=== PATIENT | male | born 1995 | race African-American/Black ===

== ENCOUNTER 2024-11-12 09:03 | Emergency (ER) | payer SELFPAY ==
[~2024-11-12] VITALS: Ht 185.4 cm; Wt 87.7 kg
[2024-11-12] MEDS: NS (Normal Saline) 0.9% 1,000 ML IV ONE (09:37)
[2024-11-12 09:52] LABS: PLATELET COUNT, AUTOMATED 199 10^3/uL (150-450)
[2024-11-12 10:18] LABS: CALCIUM LEVEL 9.1 MG/DL (8.5-10.1); CARBON DIOXIDE LEVEL 30.0 MMOL/L (20-31); CHLORIDE LEVEL 106.0 MMOL/L (98-107); CREATININE FOR GFR 1.22 MG/DL (0.70-1.30); GLOMERULAR FILTRATION RATE 81.8 (>60); POTASSIUM SERUM 4.2 MMOL/L (3.5-5.1); SODIUM LEVEL 143.0 MMOL/L (136-145)
[2024-11-12 11:49] VITALS: BP 116/61; TEMP 97.1; O2SAT 100
[2024-11-12] MEDS ORDERED: HOLTER MONITOR XX (11:50)
[2024-11-12] MEDS ORDERED: EEG XX (11:50)
== END 2024-11-12 11:57 | disposition home or self-care (01) ==
LOC: EDBD 09:03 → M ED 09:03
DX: R55 Syncope and collapse (principal); R00.1 Bradycardia, unspecified; I45.4 Nonspecific intraventricular block; Z91.040 Latex allergy status; Z91.048 Other nonmedicinal substance allergy status; Z79.899 Other long term (current) drug therapy

== ENCOUNTER → 2024-11-13 | Outpatient (CLI) | payer MEDICAID, SELFPAY ==
[~2024-11-13] MED LIST: EEG XX; HOLTER MONITOR XX
== END ==
LOC: M EKG 13:15
PROVIDERS: ATTEND Emergency Medicine
DX: R00.2 Palpitations (principal); Z53.9 Procedure and treatment not carried out, unspecified reason

== ENCOUNTER 2024-11-26 05:39 | Emergency (ER) | payer MEDICAID ==
[~2024-11-26] VITALS: Ht 185.4 cm; Wt 89.9 kg
[2024-11-26] MEDS: KETOROLAC 60 MG/2 ML VIAL IM ONE (08:19)
[2024-11-26 09:10] VITALS: BP 99/55; TEMP 96.5; O2SAT 100
== END 2024-11-26 09:22 | disposition home or self-care (01) ==
LOC: M ED 05:39
DX: S63.502A Unspecified sprain of left wrist, initial encounter (principal); M25.532 Pain in left wrist; Y92.009 Unspecified place in unspecified non-institutional (private) residence as the place of occurrence of the external cause; Y93.89 Activity, other specified; Y99.9 Unspecified external cause status; Z91.040 Latex allergy status; Z91.048 Other nonmedicinal substance allergy status; Z79.899 Other long term (current) drug therapy
CPT/HCPCS: 73110; 96372; 99284; J1885

== ENCOUNTER 2024-12-20 05:45 | Emergency (ER) | payer MEDICAID, OTHER ==
[~2024-12-20] VITALS: Ht 185.4 cm; Wt 89.0 kg
[2024-12-20] MEDS: NS (Normal Saline) 0.9% 1,000 ML IV ONE (06:26)
[2024-12-20 06:33] LABS: BASO # 0.0 10^3/uL (0.0-0.2); BASO % 0.5 % (0.0-1.0); EOS # 0.2 10^3/uL (0.0-0.5); EOS % 3.5 % (0.0-3.0); LYMPH # 2.0 10^3/uL (1.5-5.0); LYMPH % 36.5 % (24.0-44.0); MONO # 0.4 10^3/uL (0.0-0.8); MONO % 7.1 % (2.0-8.0); NEUTROPHILS # 2.9 10^3/uL (1.5-8.5); NEUTROPHILS % 52.2 % (36.0-66.0); PLATELET COUNT, AUTOMATED 195 10^3/uL (150-450)
[2024-12-20] MEDS ORDERED: ISOVUE-370 76% 100 ML VIAL As Ordered ONE (06:33)
[2024-12-20] MEDS: KETOROLAC 30 MG/ML 1 ML VIAL IV ONE (06:51)
[2024-12-20 06:58] LABS: CK-MB VALUE MASS 2.9 NG/ML (<3.6)
[2024-12-20 07:00] LABS: ALT/SGPT 23 U/L (7.0-40); AST/SGOT 21 U/L (<34)
[2024-12-20] MEDS ORDERED: ACETAMINOPHEN 500 MG TAB PO ONE (07:25)
[2024-12-20 07:27] LABS: HIV 1&2 SCREEN NEGATIVE (NEGATIVE)
[2024-12-20 07:28] LABS: CPK CREATINE PHOSPHOKINASE 284 U/L (46-171); MB/CK RELATIVE INDEX 1.02 (< OR =4)
[2024-12-20] MEDS: ONDANSETRON 4MG/2ML VIAL IV ONE (07:47)
[2024-12-20] MEDS: MORPHINE 4 MG/ML 1 ML VIAL IV ONE (07:47)
[2024-12-20 08:28] LABS: KETONE, URINE AUTO RFX NEGATIVE (NEGATIVE); LEUKOCYTE ESTERASE UR AUTO RFX NEGATIVE (NEGATIVE); NITRITE, URINE AUTO RFX NEGATIVE (NEGATIVE); RBC, URINE AUTO RFX 0 /HPF (0-3); SQUAM EPITHELIAL CELL UR AURFX 0 /HPF (0-6); WBC, URINE AUTO RFX 0 /HPF (0-3)
[2024-12-20 10:40] LABS: GC DNA AMPLIFICATION NEGATIVE (NEGATIVE); Trichomonas vaginalis (AMP) NOT DETECTED (NEGATIVE)
[2024-12-20 11:00] VITALS: BP 115/59; O2SAT 100
[2024-12-20] MEDS ORDERED: ONDA-282 PO (11:01)
[2024-12-20 11:03] VITALS: TEMP 97.6
== END 2024-12-20 11:18 | disposition home or self-care (01) ==
LOC: M ED 05:45
DX: R10.9 Unspecified abdominal pain (principal); R11.2 Nausea with vomiting, unspecified; K42.9 Umbilical hernia without obstruction or gangrene; R79.89 Other specified abnormal findings of blood chemistry; R00.1 Bradycardia, unspecified; I49.49 Other premature depolarization; Z91.040 Latex allergy status; Z91.09 Other allergy status, other than to drugs and biological substances; Z79.899 Other long term (current) drug therapy
CPT/HCPCS: 71046; 74177; 76705; 80047; 80076; 81001; 82550; 82553; 83690; 84484; 85025; 86780; 87389; 87661; 87810; 87850; 93005; 93041; 96361; 96374; 96375; 99285; J1885; J2405; Q9967

== ENCOUNTER 2024-12-24 14:19 | Emergency (ER) | payer OTHER ==
[~2024-12-24] VITALS: Ht 185.4 cm; Wt 89.5 kg
[~2024-12-24 14:19] MED LIST changes: +ONDA-282 PO
[2024-12-24 15:01] LABS: BASO # 0.0 10^3/uL (0.0-0.2); BASO % 0.6 % (0.0-1.0); EOS # 0.2 10^3/uL (0.0-0.5); EOS % 3.5 % (0.0-3.0); LYMPH # 1.6 10^3/uL (1.5-5.0); LYMPH % 26.1 % (24.0-44.0); MONO # 0.4 10^3/uL (0.0-0.8); MONO % 6.9 % (2.0-8.0); NEUTROPHILS # 3.9 10^3/uL (1.5-8.5); NEUTROPHILS % 62.6 % (36.0-66.0); PLATELET COUNT, AUTOMATED 204 10^3/uL (150-450)
[2024-12-24 15:04] LABS: KETONE, URINE AUTO RFX NEGATIVE (NEGATIVE); LEUKOCYTE ESTERASE UR AUTO RFX NEGATIVE (NEGATIVE); MUCUS, URINE RFX SMALL (NEGATIVE); NITRITE, URINE AUTO RFX NEGATIVE (NEGATIVE); RBC, URINE AUTO RFX 1 /HPF (0-3); SQUAM EPITHELIAL CELL UR AURFX 0 /HPF (0-6); WBC, URINE AUTO RFX 0 /HPF (0-3)
[2024-12-24 15:30] LABS: ALT/SGPT 23.0 U/L (7.0-40); AST/SGOT 18.0 U/L (<34); CALCIUM LEVEL 8.3 MG/DL (8.5-10.1); CARBON DIOXIDE LEVEL 30.0 MMOL/L (20-31); CHLORIDE LEVEL 104.0 MMOL/L (98-107); CREATININE FOR GFR 1.28 MG/DL (0.70-1.30); GLOMERULAR FILTRATION RATE 77.2 (>60); POTASSIUM SERUM 4.3 MMOL/L (3.5-5.1); SODIUM LEVEL 142.0 MMOL/L (136-145)
[2024-12-24] MEDS ORDERED: ISOVUE-370 76% 100 ML VIAL As Ordered ONE (17:59)
[2024-12-24] MEDS: KETOROLAC 30 MG/ML 1 ML VIAL IV ONE (18:09)
[2024-12-24] MEDS ORDERED: KETO-204 PO (18:54)
[2024-12-24 19:01] VITALS: BP 130/63; TEMP 97.6; O2SAT 100
== END 2024-12-24 19:03 | disposition home or self-care (01) ==
LOC: M ED 14:19
DX: R10.11 Right upper quadrant pain (principal); Z91.040 Latex allergy status; Z91.09 Other allergy status, other than to drugs and biological substances; Z79.899 Other long term (current) drug therapy
CPT/HCPCS: 74177; 80048; 80076; 81001; 83605; 83690; 85025; 96374; 99284; J1885; Q9967